=== PATIENT | male | born 1975 | race Caucasian/White ===

== ENCOUNTER → 2016-08-19 | Outpatient (CLI) | payer BC ==
[~2016-08-19] MED LIST: CHOL20009; HYDR2.5L TOP; KETO2CRE14 TOP; LEVO25TA PO; PRLSR20 PO
--- NOTE | 2016-08-19 10:54 | DIAGNOSTIC IMAGING REPORT ---
RIGHT HAND MIN 3 VIEWS ROUTINE CLINICAL HISTORY: NUMBNESS AND TINGLING Right pain COMPARISON: None. DISCUSSION: The bones and joint spaces appear intact. There is no evidence of fracture, dislocation or bony disease. There is no evidence for soft tissue swelling. IMPRESSION: Negative study. Electronically signed by: Harjeet Zepeda M.D. 08/19/2016 10:53 AM Dictated Date/Time: 08/19/2016 10:52 AM
--- NOTE | 2016-08-19 10:55 | DIAGNOSTIC IMAGING REPORT ---
LEFT HAND MIN 3 VIEWS ROUTINE CLINICAL HISTORY: Left hand numbness and tingling. COMPARISON: None FINDINGS: Alignment of the left hand is anatomic. No fracture or osseous lesion is identified. Carpal bones are intact. No erosions are identified. There is mild osteoarthritis of the left first carpometacarpal joint. IMPRESSION: 1. Mild arthritis of the left first carpometacarpal joint. 2. Otherwise, unremarkable left hand radiographs. Electronically signed by: Jimmie Mesa M.D. 08/19/2016 10:54 AM Dictated Date/Time: 08/19/2016 10:52 AM
== END | disposition home or self-care (01) ==
LOC: C.RAD 10:24
PROVIDERS: ATTEND Family Medicine
DX: R20.0 Anesthesia of skin (principal); R20.2 Paresthesia of skin

== ENCOUNTER → 2016-08-29 | Outpatient (CLI) | payer BC ==
--- NOTE | 2016-08-29 15:29 | DIAGNOSTIC IMAGING REPORT ---
CERVICAL SPINE 7 VIEWS HISTORY: CERVICAL RADICULOPATHY COMPARISON: None. FINDINGS: The cervical spine is visualized from C1 through the superior endplate of T1. There is no fracture. No subluxation. Disc spaces are preserved. Prevertebral soft tissues and the atlantodens interval are intact. IMPRESSION: No fracture or subluxation within the cervical spine. Electronically signed by: Harjeet Zepeda M.D. 08/29/2016 3:27 PM Dictated Date/Time: 08/29/2016 3:24 PM
== END | disposition home or self-care (01) ==
LOC: C.RADBC 14:59
PROVIDERS: ATTEND Family Medicine
DX: M54.12 Radiculopathy, cervical region (principal)

== ENCOUNTER → 2016-11-05 | Day surgery (SDC) | payer BC ==
[2016-10-31 13:38] VITALS: Ht 170.2 cm; Wt 88.2 kg
[~2016-11-05] VITALS: Ht 170.2 cm; Wt 88.2 kg
[~2016-11-05] MED LIST changes: +LIDOCAINE HCL 2% 2 ML VIAL (20MG/ML) ONE; +MIDAZOLAM HCL 1 MG/ML 2ML VIAL ONE; +PROPOFOL IV EMULSION 10 MG/ML 20 ML VIAL IV ONE; +SODIUM CHLORIDE 0.9% 500ML 500 ML IV ONE
[2016-11-05 14:31] VITALS: TEMP 36.9
--- NOTE | 2016-11-05 14:36 | Endo History and Physical ---
History & Physical Date of Service: November 05, 2016. Chief Complaint: dysphagia Referring Physician: Dr. Prince Wood History of Present Illness 41 yo CM who presents for EGD secondary to dysphagia. Past Medical History Reflux, High Cholesterol, Thyroid Disease Past Surgical History Hx Cardiac Surgery: No Hx Internal Defibrillator: No Hx Pacemaker: No Hx Abdominal Surgery: No Hx of Implantable Prosthesis: No Hx Post-Op Nausea and Vomiting: No Hx Cancer Surgery: No Hx Thoracic Surgery: No Hx Orthopedic: Yes (RT HAND GANGLION CYST REMOVAL) Hx Urinary Tract Surgery: No Family History Esophogeal CA Social History Smoking Status: Never Smoker Hx Substance Use: No Hx Alcohol Use: No Allergies Coded Allergies: No Known Allergies (Verified , NKA, 10/31/16) Current Medications Reported Home Medications Medications Dose Route/Sig Max Daily Dose Days Date Category Hydrocortisone (Hydrocortisone (Topical)) 2.5 % Lot 1 Appln TOP BID PRN 04/22/16 Reported Vitamin D (Cholecalciferol) 2,000 Unit Tab PRN 04/22/16 Reported Synthroid (Levothyroxine Sodium) 25 Mcg Tab 25 Mcg PO QAM 07/26/15 Reported Nizoral 2% (Ketoconazole) Cr 1 Appln TOP DAILY 07/26/15 Reported Prilosec (Omeprazole) 20 Mg Capcr 20 Mg PO BID 07/26/15 Reported Vital Signs Weight (Kilograms): 88.18 Height (Feet): 5 Height (Inches): 7 Date Time Temp Pulse Resp B/P Pulse Ox O2 Delivery O2 Flow Rate FiO2 11/05/16 14:31 36.9 78 18 152/81 95 Room Air Physical Exam General Appearance: WD/WN, no apparent distress Respiratory/Chest: Auscultation: breath sounds normal Cardiovascular: Heart Auscultation: RRR Abdomen: Bowel Sounds: normal Inspection & Palpation: soft, non-distended, no tenderness, guarding & rebound Assessment and Plan Assessment: 41 yo CM who presents for EGD secondary to dysphagia. Plan: Proceed with EGD.
--- NOTE | 2016-11-05 15:54 | Discharge Instructions ---
Endoscopy Patient Instructions Date / Procedure(s) Performed November 05, 2016. EGD Allergy Information Coded Allergies: No Known Allergies (Verified , NKA, 10/31/16) Discharge Date / Findings November 05, 2016. Eosinophilic esophagitis with stricture s/p dilation Medication Instructions OK to resume all medications today as prescribed Reported Home Medications Medications Dose Route/Sig Max Daily Dose Days Date Category Hydrocortisone (Hydrocortisone (Topical)) 2.5 % Lot 1 Appln TOP BID PRN 04/22/16 Reported Vitamin D (Cholecalciferol) 2,000 Unit Tab PRN 04/22/16 Reported Synthroid (Levothyroxine Sodium) 25 Mcg Tab 25 Mcg PO QAM 07/26/15 Reported Nizoral 2% (Ketoconazole) Cr 1 Appln TOP DAILY 07/26/15 Reported Prilosec (Omeprazole) 20 Mg Capcr 20 Mg PO BID 07/26/15 Reported Provider Instructions Activity Restrictions - No exercising or heavy lifting for 24 hours. - Do not drink alcohol the day of the procedure. - Do not drive a car or operate machinery until the day after the procedure. - Do not make any important decisions or sign important papers in 24 hours after the procedure. Following Day: - Return to full activity which may include returning to work/school. Diet Start your diet with liquids and light foods (jello, soup, juice, toast). Then eat your usual diet if not nauseated. Treatment For Common After Affects For mild abdominal pain, bloating, or excessive gas: - Rest - Eat lightly - Lie on right side Follow-Up Information Follow-up with Dr. Prince Wood as scheduled Anesthesia Information What You Should Know You have had a procedure that required some medicine to reduce anxiety and discomfort. This treatment is called moderate sedation. After receiving the treatment, you may be sleepy, but you will be able to breathe on your own. The effects of the treatment may last for several hours. Follow these instructions along with Activity/Diet recommendations noted above: * Do NOT do anything where dizziness or clumsiness would be dangerous. * Rest quietly at home today, then you can be up and about tomorrow. * Have a responsible person stay with you the rest of today. * You may have had an I.V. today. If so, you may take the dressing off later today. Recommendations Call your doctor if: * Trouble breathing * Continuous vomiting for more than 24 hours * Temperature above 101 degrees * Severe abdominal pain or bloating * Pain not relieved by pain medicine ordered * There is increased drainage or redness from any incision * A large amount of rectal bleeding greater than 2-3 tablespoons. (If you had a polyp/s removed or have hemorrhoids, a small amount of blood - from the rectum is to be expected.) * You have any unanswered questions or concerns. IN THE EVENT OF A SERIOUS EMERGENCY, GO TO THE NEAREST EMERGENCY ROOM Your discharge instructions were prepared by provider Tae Knight. Patient Instructions Signature Page Raghav Rai Patient (or Guardian) Signature/Date: I have read and understand the instructions given to me by my caregivers. Caregiver/RN/Doctor Signature/Date: The above-named patient and/or guardian has received patient instructions on this date. + Original Patient Signature Page (only) stays with chart. Please make copy for patient.
--- NOTE | 2016-11-05 16:05 | GI REPORT ---
Procedure Date: 11/05/2016 3:28 PM Procedure: Upper GI endoscopy Indications: Dysphagia Medicines: Monitored Anesthesia Care Complications: No immediate complications. Estimated Blood Loss: Estimated blood loss: none. Procedure: Pre-Anesthesia Assessment: - Prior to the procedure, a History and Physical was performed, and patient medications and allergies were reviewed. The patient's tolerance of previous anesthesia was also reviewed. The risks and benefits of the procedure and the sedation options and risks were discussed with the patient. All questions were answered, and informed consent was obtained. Prior Anticoagulants: The patient has taken no previous anticoagulant or antiplatelet agents. ASA Grade Assessment: II - A patient with mild systemic disease. After reviewing the risks and benefits, the patient was deemed in satisfactory condition to undergo the procedure. After obtaining informed consent, the endoscope was passed under direct vision. Throughout the procedure, the patient's blood pressure, pulse, and oxygen saturations were monitored continuously. The scope was introduced through the mouth, and advanced to the second part of duodenum. The upper GI endoscopy was accomplished without difficulty. The patient tolerated the procedure well. Findings: Mucosal changes including longitudinal furrows and tight circumferential folds were found in the entire esophagus. A guidewire was placed and the scope was withdrawn. Dilation was performed with a Savary dilator with moderate resistance at 45 Fr. The stomach was normal. The examined duodenum was normal. Impression: - Esophageal mucosal changes secondary to eosinophilic esophagitis. Dilated. - Normal stomach. - Normal examined duodenum. - No specimens collected. Recommendation: - Resume previous diet. - Continue present medications. - Repeat the upper endoscopy PRN for retreatment. - Return to primary care physician as previously scheduled. Tae Knight, 11/05/2016 4:04:38 PM This report has been signed electronically. Note Initiated On: 11/05/2016 3:28 PM I attest to the content of the Intraoperative Record and orders documented therein, exceptions below
[2016-11-05 16:23] VITALS: BP 120/85; PULSE 61; O2SAT 95
--- NOTE | 2016-11-05 16:36 | Anesthesiology Progress Note ---
Anesthesia Post Op Note Date & Time November 05, 2016 at 16:35 Vital Signs Pain Intensity: 0 Vital Signs Past 12 Hours Date Time Temp Pulse Resp B/P Pulse Ox O2 Delivery O2 Flow Rate FiO2 11/05/16 16:23 61 18 120/85 95 Room Air 11/05/16 16:08 64 18 101/79 95 Room Air 11/05/16 15:53 76 18 128/87 96 Room Air 11/05/16 14:31 36.9 78 18 152/81 95 Room Air Notes Mental Status: alert / awake / arousable, participated in evaluation Pt Amnestic to Procedure: Yes Nausea / Vomiting: adequately controlled Pain: adequately controlled Airway Patency, RR, SpO2: stable & adequate BP & HR: stable & adequate Hydration State: stable & adequate Anesthetic Complications: no major complications apparent
== END | disposition home or self-care (01) ==
LOC: C.GI 14:13
PROVIDERS: ATTEND Internal Medicine
DX: R13.10 Dysphagia, unspecified (principal); K20.0 Eosinophilic esophagitis; Z98.890 Other specified postprocedural states; Z80.0 Family history of malignant neoplasm of digestive organs; Z68.30 Body mass index [BMI] 30.0-30.9, adult; E66.9 Obesity, unspecified

== ENCOUNTER → 2017-03-09 | Outpatient (CLI) | payer BC ==
[~2017-03-09] MED LIST changes: -LIDOCAINE HCL 2% 2 ML VIAL (20MG/ML) ONE; -MIDAZOLAM HCL 1 MG/ML 2ML VIAL ONE; -PROPOFOL IV EMULSION 10 MG/ML 20 ML VIAL IV ONE; -SODIUM CHLORIDE 0.9% 500ML 500 ML IV ONE
[2017-03-09 12:52] LABS: URINE APPEARANCE CLEAR (CLEAR); URINE BILIRUBIN NEG (NEG); URINE COLOR YELLOW; URINE EPITHELIAL CELL AUTO 0-5 /lpf (0-5); URINE NITRITE NEG (NEG); URINE SPECIFIC GRAVITY 1.019 (1.000-1.030); UROBILINOGEN NEG (NEG); ZZUR CULT IF INDIC CLEAN CATCH NO
[2017-03-09 12:55] LABS: MANUAL MICROSCOPIC REQUIRED? NO; REVIEW REQ? NO
[2017-03-09 13:01] LABS: ALT/SGPT 39 U/L (12-78); AST/SGOT 24 U/L (15-37); BLOOD UREA NITROGEN 8 mg/dl (7-18); CARBON DIOXIDE 26 mmol/L (21-32); CHLORIDE 107 mmol/L (98-107); GLUCOSE,FASTING 86 mg/dl (70-99); POTASSIUM 3.8 mmol/L (3.5-5.1); SODIUM 140 mmol/L (136-145)
[2017-03-09 13:11] LABS: ALB/GLOB RATIO 1.2 (0.9-2); ALKALINE PHOSPHATASE 45 U/L (45-117); CHOLESTEROL 193 mg/dl (0-200); CHOLESTEROL/HDL RATIO 5.4; HDL CHOLESTEROL 36 mg/dl; LDL CHOLESTEROL CALCULATED 105 mg/dl; TRIGLYCERIDES 259 mg/dl (0-150); VERY LOW DENSITY LIPOPROT CALC 52 mg/dl
== END | disposition home or self-care (01) ==
LOC: C.LABPBG 15:40
PROVIDERS: ATTEND Physician Assistant
DX: Z00.00 Encounter for general adult medical examination without abnormal findings (principal); E03.9 Hypothyroidism, unspecified; R35.0 Frequency of micturition; E78.5 Hyperlipidemia, unspecified; E55.9 Vitamin D deficiency, unspecified